=== PATIENT | female | born 1965 | race Caucasian/White ===

== ENCOUNTER → 2020-11-27 09:24 | Outpatient (CLI) | payer OTHER, SELFPAY ==
[2020-11-27 19:39] LABS: Add Manual Diff / Slide Review NO; Basophils Absolute Auto 0 /uL (0-100); Basophils Percent Auto 0.3 % (0-2); Eosinophils Absolute Auto 100 /uL (0-450); Eosinophils Percent Auto 1.2 % (2-4); Hemoglobin 13.8 g/dL (12.0-16.0); Lymphocytes Absolute Auto 2400 /uL (1100-4500); Lymphocytes Percent Auto 30.5 % (25-40); Mean Corpuscular HGB Conc 33.7 % (30-36); Mean Corpuscular Hemoglobin 28.2 PG (26-34); Mean Corpuscular Volume 83.9 fL (80-100); Monocytes Absolute Auto 500 /uL (0-900); Monocytes Percent Auto 6.6 % (3-14); Neutrophils Absolute Auto 4800 /uL (1500-7000); Neutrophils Percent Auto 61.4 % (50-75); Platelet Count 293 X10^3/uL (150-400); Red Blood Cell Count 4.89 X10^6/uL (4.0-5.2); White Blood Cell Count 7.8 X10^3/uL (4.5-11.0)
[2020-11-27 19:42] LABS: Alanine Aminotransferase 26 IU/L (<35); Albumin 4.3 g/dL (3.5-5.0); Albumin Globulin Ratio 1.4 (1.0-2.8); Alkaline Phosphatase 93 U/L (38-126); Aspartate Aminotransferase 30 IU/L (14-36); BUN Creatinine Ratio 23.1 (6-22); Bilirubin Total 0.4 mg/dL (0.2-1.3); Blood Urea Nitrogen 18 mg/dL (7-17); Calcium 10.2 mg/dL (8.4-10.2); Carbon Dioxide 22 mmol/L (22-32); Chloride 109 mmol/L (98-107); Cholesterol 279 mg/dL (140-199); Estimated Glomerular Filt Rate > 60.0 mL/min (>60); Globulin 3.1 g/dL (1.7-4.1); Glucose 98 mg/dL (70-100); HDL Cholesterol 57 mg/dL (40-60); HEMOLYSIS < 15 (0-50); LDL Cholesterol Calculated 154 mg/dL (<100); Potassium 4.6 mmol/L (3.4-5.1); Sodium 139 mmol/L (137-145); Total Protein 7.4 g/dL (6.3-8.2); Triglycerides 340 mg/dL (35-150)
== END ==
PROVIDERS: PCP Physician Assistant; Visit Provider Physician Assistant
DX: M79.10 Myalgia, unspecified site (principal); R53.83 Other fatigue; Z13.220 Encounter for screening for lipoid disorders
CPT/HCPCS: 80053; 80061; 84443; 85025

== ENCOUNTER → 2021-05-29 08:59 | Outpatient (CLI) | payer OTHER, SELFPAY ==
[2021-05-29 19:48] LABS: Alanine Aminotransferase 23 IU/L (<35); Albumin 4.3 g/dL (3.5-5.0); Albumin Globulin Ratio 1.4 (1.0-2.8); Alkaline Phosphatase 85 U/L (38-126); Aspartate Aminotransferase 26 IU/L (14-36); BUN Creatinine Ratio 13.5 (6-22); Bilirubin Total 0.5 mg/dL (0.2-1.3); Blood Urea Nitrogen 13 mg/dL (7-17); Calcium 9.9 mg/dL (8.4-10.2); Carbon Dioxide 31 mmol/L (22-32); Chloride 105 mmol/L (98-107); Cholesterol 222 mg/dL (140-199); Estimated Glomerular Filt Rate 59.9 mL/min (>60); Glucose 100 mg/dL (70-100); HDL Cholesterol 61 mg/dL (40-60); HEMOLYSIS < 15 (0-50); LDL Cholesterol Calculated 128 mg/dL (<100); Potassium 4.4 mmol/L (3.4-5.1); Sodium 141 mmol/L (137-145); Total Protein 7.3 g/dL (6.3-8.2); Triglycerides 164 mg/dL (35-150)
== END ==
PROVIDERS: PCP Physician Assistant; Visit Provider Physician Assistant
DX: E78.2 Mixed hyperlipidemia (principal); Z79.899 Other long term (current) drug therapy
CPT/HCPCS: 80053; 80061

== ENCOUNTER → 2023-01-12 13:24 | Outpatient (CLI) | payer OTHER, SELFPAY ==
--- NOTE | 2023-01-12 13:25 | DI.US.S_ITS ---
ULTRASOUND OF RIGHT BREAST AND AXILLA: 01/12/2023 CLINICAL: Palpable right axilla lump. Comparison is made to exams dated: 01/12/2023 mammogram - [facility] and 01/12/2022 mammogram - outside [facility]. Ultrasound of the right breast axilla was performed. No significant abnormalities were seen sonographically in the right axilla. IMPRESSION: NEGATIVE There is no sonographic evidence of malignancy. There is no abnormality seen in the right axilla to correspond with the area of clinical concern, however, clinical correlation and clinical followup are recommended. Return to annual mammogram screening schedule is recommended. This exam was interpreted at Station ID: [id number]. Electronically Signed By: Ishaan Olsen M.D. lc/:01/12/2023 14:49:01 letter sent: Clinical Evaluation Ultrasound BI-RADS: 1 Negative
--- NOTE | 2023-01-12 13:25 | DI.MG.S_ITS ---
BILATERAL DIGITAL DIAGNOSTIC MAMMOGRAM 3D/2D: 01/12/2023 CLINICAL: Right axillary Mass. Due for Bilateral routine. Comparison is made to exam dated: 01/12/2022 mammogram - outside location. There are scattered areas of fibroglandular density in both breasts (category b / 25%-50% glandular tissue). No significant masses, calcifications, or other findings are seen in either breast. IMPRESSION: INCOMPLETE: NEEDS ADDITIONAL IMAGING EVALUATION There is no abnormality seen in the right axilla to correspond with the area of clinical concern, however, ultrasound is recommended. Based on the Tyrer Cuzick model (a risk assessment model) the patient's lifetime risk is 6.6% and her 10 year risk is 2.5%. According to the ACR, ACS, and NCCN guidelines, an annual breast MRI exam along with mammogram is recommended if the patient's lifetime risk is 20% or greater. This exam was interpreted at Station ID: [id number]. NOTE: For mammograms, a report in lay terms will be sent to the patient. Approximately 15% of breast malignancies will not be visualized mammographically. In the management of a palpable breast mass, a negative mammogram must not discourage biopsy of a clinically suspicious lesion. Electronically Signed By: Ishaan Olsen M.D. lc/:01/12/2023 14:47:27 ACR BI-RADS Category 0: Incomplete [id number]
== END ==
PROVIDERS: PCP Physician Assistant; Referring Provider Physician Assistant Medical; Visit Provider Physician Assistant Medical
DX: N63.31 Unspecified lump in axillary tail of the right breast; R92.2 Inconclusive mammogram
CPT/HCPCS: 76882; 77066; G0279

== ENCOUNTER → 2023-04-12 08:55 | Outpatient (CLI) | payer OTHER, SELFPAY ==
[2023-04-12 20:08] LABS: Add Manual Diff / Slide Review NO; Basophils Absolute Auto 0 /uL (0-100); Basophils Percent Auto 0.4 % (0-2); Eosinophils Absolute Auto 100 /uL (0-450); Eosinophils Percent Auto 1.5 % (2-4); Hematocrit 41.2 % (36-46); Hemoglobin 13.9 g/dL (12.0-16.0); Lymphocytes Absolute Auto 1900 /uL (1100-4500); Lymphocytes Percent Auto 33.4 % (25-40); Mean Corpuscular HGB Conc 33.7 % (30-36); Mean Corpuscular Hemoglobin 28.6 PG (26-34); Mean Corpuscular Volume 84.6 fL (80-100); Monocytes Absolute Auto 400 /uL (0-900); Monocytes Percent Auto 8.1 % (3-14); Neutrophils Absolute Auto 3200 /uL (1500-7000); Neutrophils Percent Auto 56.6 % (50-75); Platelet Count 324 X10^3/uL (150-400); Red Blood Cell Count 4.87 X10^6/uL (4.0-5.2); Red Cell Distribution Width 14.3 % (11.6-14.8); White Blood Cell Count 5.6 X10^3/uL (4.5-11.0)
[2023-04-12 20:21] LABS: Alanine Aminotransferase 26 IU/L (<35); Albumin 4.5 g/dL (3.5-5.0); Albumin Globulin Ratio 1.4 (1.0-2.8); Alkaline Phosphatase 101 U/L (38-126); Aspartate Aminotransferase 30 IU/L (14-36); BUN Creatinine Ratio 14.5 (6-22); Bilirubin Total 0.6 mg/dL (0.2-1.3); Blood Urea Nitrogen 12 mg/dL (7-17); Carbon Dioxide 24 mmol/L (22-32); Chloride 104 mmol/L (98-107); Cholesterol 253 mg/dL (140-199); Estimated Glomerular Filt Rate > 60 mL/min (>60); Globulin 3.2 g/dL (1.7-4.1); Glucose 100 mg/dL (70-100); HDL Cholesterol 54 mg/dL (40-60); HEMOLYSIS < 15 (0-50); LDL Cholesterol Calculated 138 mg/dL (<100); Potassium 4.4 mmol/L (3.4-5.1); Sodium 138 mmol/L (137-145); Total Protein 7.7 g/dL (6.3-8.2); Triglycerides 303 mg/dL (35-150)
== END ==
PROVIDERS: PCP Physician Assistant; Visit Provider Physician Assistant
DX: E78.2 Mixed hyperlipidemia (principal); Z79.899 Other long term (current) drug therapy
CPT/HCPCS: 80053; 80061; 85025

== ENCOUNTER → 2023-07-11 14:35 | Outpatient (CLI) | payer OTHER, SELFPAY | PROVIDERS: PCP Physician Assistant; Visit Provider Physician Assistant | DX: N89.8 Other specified noninflammatory disorders of vagina (principal) | CPT/HCPCS: 87798; 87801 ==

== ENCOUNTER → 2023-08-01 08:57 | Outpatient (CLI) | payer OTHER, SELFPAY ==
[2023-08-01 19:28] LABS: Alanine Aminotransferase 18 IU/L (<35); Albumin 4.3 g/dL (3.5-5.0); Albumin Globulin Ratio 1.5 (1.0-2.8); Alkaline Phosphatase 107 U/L (38-126); Aspartate Aminotransferase 23 IU/L (14-36); BUN Creatinine Ratio 16.7 (6-22); Bilirubin Total 0.4 mg/dL (0.2-1.3); Blood Urea Nitrogen 14 mg/dL (7-17); Calcium 9.8 mg/dL (8.4-10.2); Carbon Dioxide 24 mmol/L (22-32); Chloride 110 mmol/L (98-107); Cholesterol 196 mg/dL (140-199); Estimated Glomerular Filt Rate > 60 mL/min (>60); Globulin 2.9 g/dL (1.7-4.1); Glucose 101 mg/dL (70-100); HDL Cholesterol 52 mg/dL (40-60); HEMOLYSIS < 15 (0-50); LDL Cholesterol Calculated 104 mg/dL (<100); Potassium 4.2 mmol/L (3.4-5.1); Sodium 143 mmol/L (137-145); Total Protein 7.2 g/dL (6.3-8.2); Triglycerides 198 mg/dL (35-150)
== END ==
PROVIDERS: PCP Physician Assistant; Visit Provider Physician Assistant
DX: E78.5 Hyperlipidemia, unspecified (principal); Z12.11 Encounter for screening for malignant neoplasm of colon; Z79.899 Other long term (current) drug therapy
CPT/HCPCS: 80053; 80061

== ENCOUNTER → 2024-09-13 10:53 | Outpatient (CLI) | payer OTHER, SELFPAY ==
--- NOTE | 2024-09-13 11:04 | DI.US.S_ITS ---
MM diagnostic mammo BI, US breast LT limited: 09/13/2024 BI-RADS: 4A CLINICAL: 58-year old female for bilateral diagnostic mammogram and left diagnostic breast ultrasound. Tyrer-Cuzick lifetime risk of 3.8%. No personal or first-degree family history of breast cancer. The patient reports spontaneous yellow nipple discharge in the left breast. Patient also reports right axillary pain. PRIOR EXAMS 01/12/2023 and 01/13/2020. MAMMOGRAPHY TECHNIQUE: 2D and 3D (tomosynthesis) digital mammographic views obtained, with additional images as needed for full coverage. Current study was also evaluated with a Computer Aided Detection (CAD) system. ULTRASOUND TECHNIQUE Real-time starks scale and color doppler imaging of the area of clinical interest was performed with image documentation. DENSITY B. There are scattered areas of fibroglandular density. MAMMOGRAPHY FINDINGS Right: No suspicious mass, asymmetry, microcalcification, or other abnormality seen. Left: Upper at 12:00, Anterior depth, measuring 0.9cm: There is a circumscribed, oval mass present. ULTRASOUND FINDINGS Left: Upper at 12:00, 1 cm from nipple, measuring 0.8 x 1.2 x 0.6 cm: There is an oval, circumscribed, hypoechoic mass. This mass appears to be intraductal. No abnormal lymph nodes are seen in the left axilla. IMPRESSION: Right * No evidence of malignancy. Left (Mass): Upper at 12:00, 1 cm from nipple, measuring 0.8 x 1.2 x 0.6 cm * Low Suspicion for Malignancy. RECOMMENDATIONS Left: Upper at 12:00, 1 cm from nipple * Ultrasound-guided biopsy for further evaluation. COMMENTS: The above findings and recommendations were discussed with the patient by Dr. Henriquez over the phone at the time of the exam. OVERALL ASSESSMENT CATEGORY BI-RADS-4: Suspicious. ELECTRONICALLY SIGNED: Nora Henriquez M.D. on 09/13/2024 at 04:08:23 PM PT Interpreting Station ID: [id number]
--- NOTE | 2024-09-13 11:04 | DI.US.S_ITS ---
US axillary only rt: 09/13/2024. BI-RADS: 1 CLINICAL: 58-year old female for right diagnostic breast ultrasound. Tyrer-Cuzick lifetime risk of 4.2%. No personal or first-degree family history of breast cancer. The patient reports yellow nipple discharge (1 month) in the left breast. PRIOR EXAMS: Mammogram: 09/13/2024, 01/12/2023 Ultrasound: Left breast ultrasound 09/13/2024. ULTRASOUND TECHNIQUE: Real-time starks scale and color doppler imaging of the area of clinical interest was performed with image documentation. ULTRASOUND FINDINGS Right: Axilla: There is no sonographic abnormality in the area of clinical concern in the right axilla. No suspicious sonographic finding present. IMPRESSION: Right * No evidence of malignancy. RECOMMENDATIONS Right * Clinical follow-up is recommended, and further management of palpable abnormalities or other focal signs or symptoms should be based on the results of clinical evaluation. If palpable abnormality or other concerning symptom persists or progresses, further clinical evaluation should be considered. Bilateral * Annual screening mammography. COMMENTS: The above findings and recommendations were discussed with the patient by Dr. Henriquez over the phone at the time of imaging completion. OVERALL ASSESSMENT CATEGORY BI-RADS-1: Negative. ELECTRONICALLY SIGNED: Nora Henriquez M.D. on 09/13/2024 at 04:17:24 PM PT Interpreting Station ID: [id number]
[2024-09-13 12:04] LABS: Add Manual Diff / Slide Review NO; Basophils Absolute Auto 0 /uL (0-100); Basophils Percent Auto 0.4 % (0-2); Eosinophils Absolute Auto 100 /uL (0-450); Eosinophils Percent Auto 1.6 % (2-4); Hematocrit 40.9 % (36-46); Hemoglobin 13.9 g/dL (12.0-16.0); Lymphocytes Absolute Auto 2100 /uL (1100-4500); Mean Corpuscular HGB Conc 33.8 % (30-36); Mean Corpuscular Hemoglobin 28.4 PG (26-34); Mean Corpuscular Volume 83.9 fL (80-100); Monocytes Absolute Auto 400 /uL (0-900); Monocytes Percent Auto 6.6 % (3-14); Neutrophils Absolute Auto 3500 /uL (1500-7000); Neutrophils Percent Auto 57.4 % (50-75); Platelet Count 305 X10^3/uL (150-400); Red Blood Cell Count 4.88 X10^6/uL (4.0-5.2); Red Cell Distribution Width 14.3 % (11.6-14.8); White Blood Cell Count 6.1 X10^3/uL (4.5-11.0)
[2024-09-13 12:33] LABS: Alanine Aminotransferase 30 IU/L (<35); Albumin 4.7 g/dL (3.5-5.0); Albumin Globulin Ratio 1.7 (1.0-2.8); Alkaline Phosphatase 112 U/L (38-126); Aspartate Aminotransferase 33 IU/L (14-36); BUN Creatinine Ratio 11.2 (6-22); Bilirubin Total 0.6 mg/dL (0.2-1.3); Blood Urea Nitrogen 10 mg/dL (7-17); Calcium 9.6 mg/dL (8.4-10.2); Carbon Dioxide 24 mmol/L (22-32); Chloride 105 mmol/L (98-107); Cholesterol 227 mg/dL (140-199); Estimated Glomerular Filt Rate > 60 mL/min (>60); Globulin 2.8 g/dL (1.7-4.1); Glucose 96 mg/dL (70-99); HDL Cholesterol 62 mg/dL (40-60); HEMOLYSIS < 15 (0-50); LDL Cholesterol Calculated 130 mg/dL (<100); Potassium 4.5 mmol/L (3.4-5.1); Sodium 139 mmol/L (137-145); Total Protein 7.5 g/dL (6.3-8.2); Triglycerides 175 mg/dL (35-150)
[2024-09-13 15:47] LABS: HIV 1 & 2 Ab/Ag 4th Gen Combo NEGATIVE (NEGATIVE); Hep C Virus Ab w/Reflex Quant NEGATIVE s/c (NEGATIVE)
== END ==
PROVIDERS: PCP Physician Assistant; Referring Provider Physician Assistant; Visit Provider Physician Assistant
DX: Z11.59 Encounter for screening for other viral diseases (principal); Z11.4 Encounter for screening for human immunodeficiency virus [HIV]; N63.21 Unspecified lump in the left breast, upper outer quadrant; N64.52 Nipple discharge; E78.5 Hyperlipidemia, unspecified; F32.A Depression, unspecified; M79.621 Pain in right upper arm
CPT/HCPCS: 36415; 76642; 76882; 77066; 80053; 80061; 84443; 85025; 86803; 87389; G0279

== ENCOUNTER → 2024-10-03 13:34 | Outpatient (CLI) | payer OTHER, SELFPAY ==
--- NOTE | 2024-10-03 | PATH_ITS ---
[facility] Accession Number: [id number] No. of containers..01 Tissue . 01 Material submitted: . breast - LEFT BREAST MASS 12:00 1CMFN . 01 Diagnosis: LEFT BREAST MASS, 12 O'CLOCK, 1 CM FN, NEEDLE CORE BIOPSIES: Fragments of atypical papillary lesion, please see microscopic description. Negative for invasive carcinoma. MRV 10/05/2024 1401 Local . 01 Electronically signed: . Helena Gooden MD, Pathologist NPI- [id number] . 01 Gross description: . Received is one formalin-filled container labeled with the patient's name designated left breast mass 12 o'clock 1 cm FN. The specimen is received with plastic filter in container, and sample loose in container, and consists of multiple yellow-hassan pieces of tissue which range in size from 0.2 x 0.2 x 0.2 cm to 1.2 x 0.4 x 0.3 cm. All fragments are totally submitted in cassette A1. . Collection date per requisition 10/03/2024, possible collection time per container 1:50 p.m. Time in formalin not provided. Cold ischemic time cannot be calculated. Total fixation time possibly approximately 13 hours. ([id number]) /ANITA 10/04/2024 0651 Local . 01 Microscopic: . Microscopic examination reveals fragments of papillary proliferative lesion with atypia, supported by performed immunohistochemistry, as follows: CK5/6 appears diminished on the ductal epithelium, and Estrogen Receptor (ER) is overexpressed. . Myoepithelial markers p63 and myosin are performed to evaluate for the possibility of an invasive component and the pattern of staining supports absence of invasion. The capsule is not well represented; therefore, examination of this lesion is limited. . Overall, the morphology and immunohistochemistry supports papillary lesion with atypia, and the differential diagnosis includes intraductal papilloma with Atypical Ductal Hyperplasia (ADH)/Ductal Carcinoma in situ (DCIS), papillary DCIS, encapsulated papillary carcinoma, solid papillary carcinoma (less favored), etc. . Recommend complete excision of this atypical papillary lesion for accurate characterization. . Clinical correlation and correlation with radiologic findings is recommended. . As part of ongoing quality assurance monitor body, this case is also reviewed by Dr. Sylvia aCmpbell, who agrees with the interpretation. . * This test was developed and the performance characteristics were validated by [employer]. It has not been cleared or approved by the [place].S. Food and Drug Administration. . 01 Pathologist provided ICD-10: N63.20 . 01 CPT . 027250, I66224, E56646 Specimen Comment: A courtesy copy of this report has been sent to [facility], Specimen Comment: [phone] Performed at: [address] [id number] MD Hernan Avila MD Phone: [phone]
--- NOTE | 2024-10-03 13:36 | DI.US.S_ITS ---
Left US bx breast perc w vac device: 10/03/2024. Rad-Path Correlation: Pending CLINICAL: 58-year old female for left procedure that resulted from diagnostic mammogram on 09/13/2024. Tyrer-Cuzick lifetime risk of 3.8%. No personal or first-degree family history of breast cancer. CONSENT Risks including but not limited to bleeding and infection, benefits and alternatives were discussed with the patient. The patients agreed to the procedure, reported no allergy to local anesthesia and signed the consent form. ROUTINE Left: Patient positioned in the sitting position, prepped and draped in the usual manner using sterile technique. TECHNIQUE Left Breast: Upper at 12:00: Procedure: Ultrasound-guided vacuum-assisted biopsy of a mass. Device: 11-gauge vacuum-assisted biopsy instrument. Mammotome(R). Anesthesia: Local anesthesia obtained using 5 ml 1%-lidocaine. Secondary local anesthesia obtained using 5 ml 1%-lidocaine with epinephrine. Skin Entry: Incision with #11 blade. Passes: 4. Specimens: 4. Targeting Confirmation: Real-time Observation. Post-procedure imaging: Post-procedure mammogram confirms in target location. Rad/Path Correlation: Pending receipt of pathology report. Conclusion: Ultrasound-guided Vacuum-assisted biopsy with post-procedure mammogram, Left Breast: Upper at 12:00 COMPLICATIONS: No complications were encountered while the patient was in our department. DISPOSITION The patient left our department in good condition with aftercare instructions and urged to contact us should any problem arise. SUMMARY Left Breast: Upper at 12:00: Ultrasound-guided vacuum-assisted biopsy of a mass. PATHOLOGY Left Breast: Upper at 12:00: Radiologist-Pathologist Correlation: Pending receipt of pathology report. ELECTRONICALLY SIGNED: Kirby Mcdonnell M.D. on 10/05/2024 at 03:54:13 PM PT Interpreting Station ID: [id number]
--- NOTE | 2024-10-03 14:27 | DI.MG.S_ITS ---
MM diagnostic mammo [id number]: 10/03/2024. BI-RADS: None CLINICAL: 58-year old female for left diagnostic mammogram. Tyrer-Cuzick lifetime risk of 3.8%. No personal or first-degree family history of breast cancer. PRIOR EXAMS Mammogram(s): 09/13/2024. Breast Ultrasound(s): 09/13/2024, 09/13/2024. Two Other Exams on 01/12/2023. MAMMOGRAPHY TECHNIQUE: 2D and 3D (tomosynthesis) digital mammographic views obtained, with additional images as needed for full coverage. Current study was also evaluated with a Computer Aided Detection (CAD) system. DENSITY Left: B. There are scattered areas of fibroglandular density. MAMMOGRAPHY FINDINGS Left: Upper at 12:00, 1 cm from nipple, previously measuring (09/13/2024) 0.8 x 1.2 x 0.6cm: There is an (Unspecified) biopsy marker in targeted location. IMPRESSION: Left * Biopsy marker present. OVERALL ASSESSMENT CATEGORY BI-RADS None: This exam requires no BI-RADS. ELECTRONICALLY SIGNED: Kirby Mcdonnell M.D. on 10/05/2024 at 03:55:04 PM PT Interpreting Station ID: [id number]
== END ==
PROVIDERS: PCP Physician Assistant; Referring Provider Physician Assistant; Visit Provider Physician Assistant
DX: N63.25 Unspecified lump in the left breast, overlapping quadrants (principal); R92.322 Mammographic fibroglandular density, left breast
CPT/HCPCS: 19083; 77065